=== PATIENT | male | born 1945 | race Caucasian/White ===

== ENCOUNTER 2021-05-22 20:42 | Emergency (ER) | payer MEDICARE, OTHER ==
[~2021-05-22] VITALS: Ht 182.9 cm; Wt 77.1 kg
[2021-05-22 22:08] LABS: ABSOLUTE BASOPHILS 0.1 thou/uL (0.0-0.2); ABSOLUTE EOSINOPHILS 0.1 thou/uL (0.0-0.7); ABSOLUTE LYMPHOCYTES 1.4 thou/uL (0.8-5.3); ABSOLUTE MONOCYTES 0.7 thou/uL (0.0-1.2); ABSOLUTE NEUTROPHILS 2.6 thou/uL (1.6-8.1); BASOPHILS 1.5 %; EOSINOPHILS 2.9 %; HEMATOCRIT 40.2 % (42.0-52.0); HEMOGLOBIN 13.6 gm/dL (14.0-18.0); LYMPHOCYTES 29.1 %; MCH 31.8 pg (26.0-34.0); MCHC 33.8 g/dL (28.0-37.0); MCV 94.1 fL (80.0-100.0); MONOCYTES 13.5 %; MPV 7.5 fl. (7.2-11.1); NUCLEATED RBCS 0 /100WBC; PLATELET COUNT* 214 thou/uL (150-400); RBC 4.27 mil/uL (4.50-6.00); RDW-CV 17.4 % (10.5-14.5); WBC 4.8 thou/uL (4.0-11.0)
[2021-05-22 22:16] LABS: CALCIUM 8.7 mg/dL (8.5-10.1); CREATININE 0.8 mg/dL (0.6-1.3); POTASSIUM 4.2 mmol/L (3.5-5.1)
[2021-05-22 22:21] LABS: ALBUMIN 3.6 g/dL (3.4-5.0); TOTAL BILIRUBIN 0.4 mg/dL (<0.1-1.0); TOTAL PROTEIN 6.8 g/dL (6.4-8.2)
[2021-05-22 23:34] LABS: URINE BILIRUBIN NEGATIVE (Negative); URINE BLOOD NEGATIVE (Negative); URINE CLARITY CLEAR; URINE COLOR YELLOW; URINE GLUCOSE-RANDOM NEGATIVE (Negative); URINE KETONES TRACE (Negative); URINE LEUKOCYTES-REFLEX NEGATIVE (Negative); URINE NITRITE-REFLEX NEGATIVE (Negative); URINE PROTEIN NEGATIVE (Negative); URINE SPECIFIC GRAVITY 1.025 (1.005-1.030)
[2021-05-23] MEDS ORDERED: DIAZEPAM 2MG TAB2 MG PO (00:25)
[2021-05-23 00:55] VITALS: BP 146/71
--- NOTE | 2021-05-23 08:17 | EKG ---
[place] [address] ELECTROCARDIOGRAM REPORT Name: CINTIA DILLARD II Room: [facility]#: [id number] Admission: 05/22/21 Attend Phys: Discharge: 05/23/21 Date of : 49 Date of Service: 05/22/212140 Report #: [id number] THIS REPORT FOR: //name// [facility] ED Test Date: 2021-05-22 Test Time: 21:41:19 Pat Name: CINTIA DILLARD Department: Room: Gender: [employer] Raiser: : 1945 Requested By: Romana Medellin Order Number: [id number] MD: Brian Osorio Measurements Intervals [place] Rate: 70 P: 43 VA: 146 QRS: 9 QRSD: 92 T: 36 QT: 392 QTc: 423 Interpretive Statements Sinus rhythm Atrial premature complex No previous ECG available for comparison Electronically Signed On 05-23-2021 8:16:58 [employer] by Brian Osorio [email or web address] <ELECTRONICALLY SIGNED> By: Brian Osorio MD, [facility] 05/23/2116 40 40 Brian Osorio MD, [facility] /EPI
== END 2021-05-23 00:55 | disposition home or self-care (01) ==
LOC: M.ERS 20:42
PROVIDERS: Personal Emergency Response Attendant
DX: R42 Dizziness and giddiness (principal); R51.9 Headache, unspecified; I10 Essential (primary) hypertension